=== PATIENT | male | born 2000 | race Caucasian/White ===

== ENCOUNTER 2023-10-12 14:02 | Emergency (ER) | payer OTHER, SELFPAY ==
[2023-10-12 14:36] VITALS: BP 131/75; PULSE 91; RESP 18; TEMP 36.9; O2SAT 98; BMI 22.7
--- NOTE | 2023-10-12 18:05 | ED.EAR1 ---
Documented by User: Genny Gardner 10/12/23 18:21 HPI - Ear Problem General Chief complaint: Ear Stated complaint: EAR PAIN BOTH EARS Time Seen by Provider: 10/12/23 17:53 Source: patient Mode of arrival: walk-in Limitations: no limitations History of Present Illness HPI Narrative: 23-year-old male presents here with chief complaint of bilateral ear discomfort. He states he has ringing in his ears. He states he has cerumen impaction in the past. He feels he may have impaction or increased cerumen at this time. Otherwise healthy no acute distress Related Data Allergies Allergy/AdvReac Type Severity Reaction Status Date / Time No Known Drug Allergies Allergy Verified 10/12/23 14:38 Review of Systems ROS Narrative All Systems are negative except as noted/marked.All systems reviewed and otherwise negative PFSH PFSH Social History Smoking status: Heavy tobacco smoker Exam Narrative Exam Narrative: Nurses note and vital signs reviewed and patient is not hypoxic. General: The patient appears well and in no apparent distress. Patient is resting comfortably on cart. Skin: Warm, dry, no pallor noted. There is no rash noted. Ears, Nose, Mouth, and Throat: oral mucosa is moist. Nares patent. Mouth without vesicles. bi Lateral cerumen Cardiovascular: Regular Rate and Rhythm Respiratory: Patient is in no distress, no accessory muscle use, lungs are clear to auscultation, no wheezing, rales or rhonchi Back: non-tender, no CVA tenderness bilaterally to percussion. Neurological: A&O x4, normal speech Psychiatric: Cooperative Constitutional Vital Signs, click to edit/add: Last Vital Signs Temp 98.4 F 10/12/23 14:36 Pulse 91 H 10/12/23 14:36 Resp 18 10/12/23 14:36 BP 131/75 10/12/23 14:36 Pulse Ox 98 10/12/23 14:36 O2 Del Method Room Air 10/12/23 14:36 Course Vital Signs Vital signs: Vital Signs Temperature 98.4 F 10/12/23 14:36 Pulse Rate 91 H 10/12/23 14:36 Respiratory Rate 18 10/12/23 14:36 Blood Pressure 131/75 10/12/23 14:36 Pulse Oximetry 98 10/12/23 14:36 Oxygen Delivery Method Room Air 10/12/23 14:36 Temperature 98.4 F 10/12/23 14:36 Pulse Rate 91 H 10/12/23 14:36 Respiratory Rate 18 10/12/23 14:36 Blood Pressure 131/75 10/12/23 14:36 Pulse Oximetry 98 10/12/23 14:36 Oxygen Delivery Method Room Air 10/12/23 14:36 Medical Decision Making MDM Narrative Medical decision making narrative: Patient presents with chief complaint of cerumen in ears Patient will be discharged home he will follow-up with primary care physician physician. No irrigation today here in the emergency room. Patient told to use [id number] antibiotic debrox. Patient verbalizes understanding agrees with plan of care Discharge Plan Discharge Chief Complaint: Ear Clinical Impression: Cerumen impaction Patient Disposition: Home, Self-Care Time of Disposition Decision: 18:06 Condition: Good Instructions: Earache (ED) Additional Instructions: use over the counter debrox Stand Alone Forms: Portal Instructions Referrals: Physician,Non-Staff, MD [Primary Care Provider] - 1 week Discharge Date/Time: 10/12/23 18:16 Documented by User: Evan Flores MD 10/12/23 21:23 HPI - Ear Problem General Chief complaint: Ear Stated complaint: EAR PAIN BOTH EARS Time Seen by Provider: 10/12/23 17:53 Related Data Allergies Allergy/AdvReac Type Severity Reaction Status Date / Time No Known Drug Allergies Allergy Verified 10/12/23 14:38 PFSH PFSH Social History Smoking status: Heavy tobacco smoker Exam Constitutional Vital Signs, click to edit/add: Last Vital Signs Temp 98.4 F 10/12/23 14:36 Pulse 91 H 10/12/23 14:36 Resp 18 10/12/23 14:36 BP 131/75 10/12/23 14:36 Pulse Ox 98 10/12/23 14:36 O2 Del Method Room Air 10/12/23 14:36 Course Vital Signs Vital signs: Vital Signs Temperature 98.4 F 10/12/23 14:36 Pulse Rate 91 H 10/12/23 14:36 Respiratory Rate 18 10/12/23 14:36 Blood Pressure 131/75 10/12/23 14:36 Pulse Oximetry 98 10/12/23 14:36 Oxygen Delivery Method Room Air 10/12/23 14:36 Temperature 98.4 F 10/12/23 14:36 Pulse Rate 91 H 10/12/23 14:36 Respiratory Rate 18 10/12/23 14:36 Blood Pressure 131/75 10/12/23 14:36 Pulse Oximetry 98 10/12/23 14:36 Oxygen Delivery Method Room Air 10/12/23 14:36 Medical Decision Making MDM Narrative Medical decision making narrative: Patient presents with chief complaint of cerumen in ears Patient will be discharged home he will follow-up with primary care physician physician. No irrigation today here in the emergency room. Patient told to use [id number] antibiotic debrox. Patient verbalizes understanding agrees with plan of care I, Dr Flores, have reviewed the above progress note and course of action in the ER; agree with the above. I have gone over history and physical, and discussed disposition and treatment plan with the patient. Discharge Plan Discharge Chief Complaint: Ear Clinical Impression: Cerumen impaction Patient Disposition: Home, Self-Care Time of Disposition Decision: 18:06 Condition: Good Instructions: Earache (ED) Additional Instructions: use over the counter debrox Stand Alone Forms: Portal Instructions Referrals: Physician,Non-Staff, MD [Primary Care Provider] - 1 week Discharge Date/Time: 10/12/23 18:16
== END 2023-10-12 18:16 | disposition home or self-care (01) ==
PROVIDERS: Emergency Provider Emergency Medicine
DX: H61.23 Impacted cerumen, bilateral (principal); F17.210 Nicotine dependence, cigarettes, uncomplicated
CPT/HCPCS: 99282